=== PATIENT | male | born 1955 | race Two or more races ===

== ENCOUNTER 2022-08-21 14:20 | Inpatient (IN) | payer MEDICARE, OTHER ==
[~2022-08-21] VITALS: Ht 165.1 cm; Wt 82.6 kg
--- NOTE | 2022-08-21 14:29 | NUR ---
CALLED FOR TRIAGE, NO RESPONSE
[2022-08-21] MEDS ORDERED: HYDR25SU33 RC (15:12)
[2022-08-21] MEDS ORDERED: HYDR-3972 PO (15:12)
[2022-08-21] MEDS ORDERED: CALC-1159 PO (15:12)
[2022-08-21] MEDS ORDERED: ACET325T53 PO (15:12)
[2022-08-21] MEDS ORDERED: RIVA10TA PO (15:12)
[2022-08-21] MEDS ORDERED: LEVE500T20 PO (15:12)
[2022-08-21] MEDS ORDERED: HYDR-3980 PO (15:12)
[2022-08-21] MEDS ORDERED: OMEP20CA15 PO (15:12)
[2022-08-21] MEDS ORDERED: MAGN400O6 PO (15:12)
[2022-08-21] MEDS ORDERED: ATOR40TA PO (15:12)
[2022-08-21] MEDS ORDERED: LORA10TA68 PO (15:12)
[2022-08-21] MEDS ORDERED: IBUP-1955 PO (15:12)
[2022-08-21] MEDS ORDERED: BISA10SU11 RC (15:12)
--- NOTE | 2022-08-21 15:15 | NUR ---
URINE SAMPLE COLLECTED AND SENT TO LAB
--- NOTE | 2022-08-21 15:17 | NUR ---
CERTIFIED RETINAL ANGIOGRAPHER ROCHELLE SWAN [phone]
--- NOTE | 2022-08-21 15:40 | NUR ---
IV medication completed, no signs of infiltration, IV discontinued
[2022-08-21 15:59] LABS: BASOPHILS % (AUTO) 0.2 % (0.0-2.0); HEMATOCRIT 45 % (39-51); HEMOGLOBIN 14.5 g/dL (13.5-17.5); LYMPHOCYTES # (AUTO) 1.4 K/uL (0.8-4.8); LYMPHOCYTES % (AUTO) 18.7 % (20.0-44.0); MEAN CORPUSCULAR HGB CONC 33 g/dl (31.0-36.0); MEAN CORPUSCULAR VOLUME 93 fL (80-96); MONOCYTES # (AUTO) 0.7 K/uL (0.1-1.30); MONOCYTES % (AUTO) 9.5 % (2.0-12.0); NEUTROPHILS # (AUTO) 5.3 K/uL (1.8-8.9); NEUTROPHILS % (AUTO) 68.6 % (43.0-81.0); PLATELET COUNT (AUTO) 181 K/uL (150-450); RED BLOOD CELL COUNT(AUTO) 4.81 MIL/uL (4.5-6.0); WHITE BLOOD COUNT (AUTO) 7.7 K/uL (4.3-11.0)
[2022-08-21 16:18] LABS: BILIRUBIN,URINE NEGATIVE (NEGATIVE); COLOR,URINE YELLOW (YELLOW); LEUKOCYTE ESTERASE ,URINE 2+ (NEGATIVE); NITRITE, URINE NEGATIVE (NEGATIVE); PROTEIN,URINE NEGATIVE (NEGATIVE); UGLUCOSE NEGATIVE (NEGATIVE); UROBILINOGEN,URINE 0.2 EU/dL (0.2)
--- NOTE | 2022-08-21 16:22 | NUR ---
RAPID COVID SWAB DONE AND SENT TO LAB
[2022-08-21 16:43] LABS: BACTERIA,URINE 4+ /HPF (None Seen); RBC,URINE 0-2 /HPF (0-2); SQUAMOUS EPITHELIAL CELL,UR 0-2 /HPF (None Seen); WBC,URINE 21-50 /HPF (0-3)
[2022-08-21] MEDS ORDERED: HYDROCODONE/APAP 5/325MG TABLET ONE (17:29)
[2022-08-21] MEDS ORDERED: HYDROCODONE/APAP 5/325MG TABLET PO ONE (17:30)
[2022-08-21 17:37] LABS: CREATININE 1.4 mg/dL (0.6-1.3); POTASSIUM 4.4 mmol/L (3.5-5.1)
[2022-08-21 18:00] LABS: THYROID STIMULATING HORMONE 2.488 uIU/mL (0.358-3.74)
[2022-08-21] MEDS ORDERED: CIPROFLOXACIN HCL 500 MG TABLET PO ONE (18:30)
[2022-08-21] MEDS ORDERED: CIPROFLOXACIN HCL 500 MG TABLET ONE (18:39)
--- NOTE | 2022-08-21 18:58 | NUR ---
ROOM 212 A
--- NOTE | 2022-08-21 19:22 | NUR ---
REPORT GIVEN TO ARTEM SOTO OF [employer]
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
--- NOTE | 2022-08-21 19:58 | NUR ---
TRANSFERRED TO [facility] VIA STRETCHER
[2022-08-21 20:00] VITALS: BP 105/56
[2022-08-21] MEDS ORDERED: MAGNESIUM HYDROXIDE 30 ML UDC PO PRN ×2 (20:30→22:00)
[2022-08-21] MEDS ORDERED: MAG HYDROX/AL HYDROX/SIMETH 30 ML UDC PO PRN (20:30)
[2022-08-21] MEDS ORDERED: ACETAMINOPHEN 325 MG TABLET PO PRN ×2 (20:30→22:00)
[2022-08-21] MEDS ORDERED: BISACODYL SUPP (10 MG) 10 MG/SUPP.RECT SUPP.RECT RC PRN (22:00)
[2022-08-21] MEDS ORDERED: HYDROCORTISONE ACETATE 25 MG/SUPP.RECT SUPP.RECT RC PRN (22:00)
[2022-08-21] MEDS ORDERED: BLOOD SUGAR DIAGNOSTIC 1 EACH STRIP IN ONE (22:00)
[2022-08-21] MEDS ORDERED: CALCIUM CARBONATE 500 MG TAB.CHEW PO PRN (22:30)
[2022-08-21] MEDS ORDERED: Z GUARD REMEDY 4 OZ OINT TP PRN (22:30)
[2022-08-22] MEDS: HYDROCODONE/APAP 5/325MG TABLET PO PRN ×3 (05:00→22:53)
--- NOTE | 2022-08-22 05:00 | NUR ---
GPS RN NOTE, PATIENT HAS A COMPLAINT OF LOWER BACK PAIN AT 7 OUT OF 10 ON THE PAIN SCALE AND IS REQUESTING NORCO AT THIS TIME. PATIENT VITAL SIGNS ARE STABLE. GAVE NORCO 5-325 1 TAB PO Q6HR PRN ORDERED. WILL REASSESS PAIN AND I WILL CONTINUE TO MONITOR THIS PATIENT WITH THE HELP OF STAFF.
[2022-08-22 08:00] VITALS: BP 136/76
[2022-08-22] MEDS: CIPROFLOXACIN HCL 250 MG TABLET PO SCH ×2 (08:32→21:21)
[2022-08-22] MEDS: ATORVASTATIN 40 MG TABLET PO SCH (08:32)
[2022-08-22] MEDS: LORATADINE 10 MG TABLET PO SCH (08:32)
[2022-08-22] MEDS: LEVETIRACETAM (250 MG) 250 MG TABLET PO SCH ×2 (08:32→21:29)
[2022-08-22] MEDS: PANTOPRAZOLE 40 MG TABLET.DR PO SCH (08:32)
[2022-08-22] MEDS: RIVAROXABAN 10 MG TABLET PO SCH (08:33)
--- NOTE | 2022-08-22 10:44 | NUR ---
WOUND CARE CONSULT: PT PRESENTS WITH BACK AND CHEST PATCHY RED SKIN CONDITION WHICH HE STATES HAS BEEN CHRONIC SINCE CHILDHOOD. DEFER TO PMD. WILL SEE PRN.
[2022-08-22 16:00] VITALS: BP 134/57
[2022-08-22] MEDS: DULOXETINE HCL 30 MG CAPSULE.DR PO SCH (16:00)
--- NOTE | 2022-08-22 16:09 | NUR ---
Initial discharge plan: The pt. states he currently resides at [facility] [[address] [place] [address] ] and does not want to return there. Per pt. he would like to have his "own place". [facility] called [facility] [phone] who states that the pt. does not want to live there. [facility]OT will continue to collaborate with psychiatrist to form a safe and proper discharge plan.
--- NOTE | 2022-08-22 16:10 | NUR ---
Family Contact: Per pt. he has a brother, Regulo Bauer who resides in [place] tel: [phone] SW attempted to reach Regulo but line is disconnected. Per pt., Jake Ronn [phone] is his [facility] worker and should not be involved.
--- NOTE | 2022-08-22 16:12 | NUR ---
Facility Contact: [facility] called [facility] [phone] who provided collateral information and stated pt. has no family, is not conserves and garnica not have a DPOA.
[2022-08-22 20:00] VITALS: BP 122/65
[2022-08-22] MEDS: ARIPIPRAZOLE 5 MG TABLET PO SCH (21:38)
--- NOTE | 2022-08-22 22:53 | NUR ---
RN NOTE: PAIN PATIENT C/O RIGHT HIP PAIN 01/26 AND WANTED TO TAKE NORCO ONLY AT THIS TIME. PRN NORCO 5-325 MG PO ADMINISTERED ORDERED BY MD. WILL CONTINUE TO MONITOR FOR ANY CHANGES.
[2022-08-23 07:05] LABS: BASOPHILS % (AUTO) 0.1 % (0.0-2.0); EOSINOPHILS % (AUTO) 2.3 % (0.0-6.0); HEMATOCRIT 44 % (39-51); HEMOGLOBIN 14.8 g/dL (13.5-17.5); LYMPHOCYTES # (AUTO) 1.2 K/uL (0.8-4.8); LYMPHOCYTES % (AUTO) 17.9 % (20.0-44.0); MEAN CORPUSCULAR HGB CONC 33 g/dl (31.0-36.0); MEAN CORPUSCULAR VOLUME 92 fL (80-96); MONOCYTES # (AUTO) 0.5 K/uL (0.1-1.30); MONOCYTES % (AUTO) 8.4 % (2.0-12.0); NEUTROPHILS # (AUTO) 4.7 K/uL (1.8-8.9); NEUTROPHILS % (AUTO) 71.3 % (43.0-81.0); PLATELET COUNT (AUTO) 163 K/uL (150-450); RED BLOOD CELL COUNT(AUTO) 4.83 MIL/uL (4.5-6.0); WHITE BLOOD COUNT (AUTO) 6.5 K/uL (4.3-11.0)
[2022-08-23 07:18] LABS: CALCIUM, SERUM 8.7 mg/dL (8.5-10.1); CREATININE 1.2 mg/dL (0.6-1.3); POTASSIUM 3.8 mmol/L (3.5-5.1)
[2022-08-23 08:00] VITALS: BP 144/87
[2022-08-23] MEDS: PANTOPRAZOLE 40 MG TABLET.DR PO SCH (08:09)
[2022-08-23] MEDS: LORATADINE 10 MG TABLET PO SCH (08:10)
[2022-08-23] MEDS: HYDROCODONE/APAP 5/325MG TABLET PO PRN ×3 (08:10→21:33)
[2022-08-23] MEDS: ATORVASTATIN 40 MG TABLET PO SCH (08:10)
[2022-08-23] MEDS: CIPROFLOXACIN HCL 250 MG TABLET PO SCH ×2 (08:10→21:25)
[2022-08-23] MEDS: LEVETIRACETAM (250 MG) 250 MG TABLET PO SCH ×2 (08:10→21:26)
[2022-08-23] MEDS: DULOXETINE HCL 30 MG CAPSULE.DR PO SCH (08:10)
[2022-08-23] MEDS: RIVAROXABAN 10 MG TABLET PO SCH (08:13)
[2022-08-23 16:00] VITALS: BP 131/67
--- NOTE | 2022-08-23 19:30 | NUR ---
PS RN NOTE, RECEIVED PATIENT AWAKE AND IN BED, HAS A COMPLAINT OF LOWER BACK PAIN AT 6 OUT OF 10 ON THE PAIN SCALE. PATIENT IS TAKING PAIN MEDICATION FOR THIS PAIN. PATIENT IS DISPLAYING NO S/S OF APPARENT DISTRESS AT THIS TIME. PATIENT BREATHING IS UNLABORED WITH EQUAL RISE AND FALL OF THE CHEST. PATIENT IS ALERT AND ORIENTED X 3 ON ROOM AIR WITH A SPO2 95%. PATIENT IS COMPLIANT WITH MEDICATIONS, CALM, GUARDED, ANXIOUS, AND COOPERATIVE. PATIENT DENIES SUICIDAL AND HOMICIDAL IDEATIONS AT THIS TIME. PATIENT ASSISTED WITH TURNING AND REPOSITIONING Q2HR AND PRN FOR COMFORT AND CIRCULATION. PATIENT HAS NO NEEDS AT THIS TIME. PATIENT EDUCATED ON THE USE OF THE CALL [place]ILLAL[place]. PATIENT BED SIDE RAILS UP X 2 FOR SAFETY. PATIENT BED IS LOCKED AND LOW. WILL CONTINUE TO MONITOR THIS PATIENT Q15 MINUTES WITH THE HELP OF STAFF TO MAINTAIN SAFETY.
[2022-08-23 20:59] VITALS: BP 116/81
[2022-08-23] MEDS: ARIPIPRAZOLE 5 MG TABLET PO SCH (21:25)
--- NOTE | 2022-08-23 21:34 | NUR ---
GPS RN NOTE, PATIENT HAS A COMPLAINT OF LOWER BACK PAIN AT 7 OUT OF 10 ON THE PAIN SCALE AND IS REQUESTING NORCO AT THIS TIME. PATIENT VITAL SIGNS ARE STABLE. GAVE NORCO 5-325 Q6HR PRN ORDERED. WILL REASSESS PAIN AND I WILL CONTINUE TO MONITOR THIS PATIENT WITH THE HELP OF STAFF.
[2022-08-24 08:00] VITALS: BP 147/53
[2022-08-24] MEDS: PANTOPRAZOLE 40 MG TABLET.DR PO SCH (08:18)
[2022-08-24] MEDS: LEVETIRACETAM (250 MG) 250 MG TABLET PO SCH ×2 (08:18→20:51)
[2022-08-24] MEDS: CIPROFLOXACIN HCL 250 MG TABLET PO SCH ×2 (08:18→20:50)
[2022-08-24] MEDS: LORATADINE 10 MG TABLET PO SCH ×2 (08:18→08:25)
[2022-08-24] MEDS: DULOXETINE HCL 30 MG CAPSULE.DR PO SCH ×2 (08:18→08:24)
[2022-08-24] MEDS: ATORVASTATIN 40 MG TABLET PO SCH (08:24)
[2022-08-24] MEDS: RIVAROXABAN 10 MG TABLET PO SCH (08:29)
[2022-08-24] MEDS: HYDROCODONE/APAP 5/325MG TABLET PO PRN ×2 (09:58→16:59)
[2022-08-24 16:00] VITALS: BP 135/80
[2022-08-24 20:22] VITALS: BP 115/75
[2022-08-24] MEDS: ARIPIPRAZOLE 5 MG TABLET PO SCH (20:50)
[2022-08-25] MEDS: TEMAZEPAM 7.5 MG CAPSULE PO PRN ×2 (00:51→23:43)
[2022-08-25] MEDS: HYDROCODONE/APAP 5/325MG TABLET PO PRN ×4 (00:51→23:43)
--- NOTE | 2022-08-25 04:27 | NUR ---
RN CLOSING NOTES: ALERT AND ORIENTATED X3 AMBULATES WITH AND WITHOUT THE WALKER HIS GAIT IS UNSTEADY AND SLOW SMILING AND VERBALIZING HIS NEEDS PLEASANT REQUESTED RESTORIL FOR INSOMNIA AND EFFECTIVE /REQUESTED NORCO FOR BACK PAIN AND EFFECTIVE PINK RASH ON HIS BACK STATES THERE IS AN ITCH AND RECEIVING CLARITINE FOR IT SAT IN THE TV ROOM ALONE FOR 1 HOUR THIS EVENING
[2022-08-25 08:00] VITALS: BP 145/70
[2022-08-25] MEDS: PANTOPRAZOLE 40 MG TABLET.DR PO SCH (08:03)
[2022-08-25] MEDS: DULOXETINE HCL 30 MG CAPSULE.DR PO SCH (08:05)
[2022-08-25] MEDS: CIPROFLOXACIN HCL 250 MG TABLET PO SCH (08:05)
[2022-08-25] MEDS: ATORVASTATIN 40 MG TABLET PO SCH (08:06)
[2022-08-25] MEDS: LEVETIRACETAM (250 MG) 250 MG TABLET PO SCH ×2 (08:06→21:18)
[2022-08-25] MEDS: RIVAROXABAN 10 MG TABLET PO SCH (08:14)
[2022-08-25] MEDS: LORATADINE 10 MG TABLET PO SCH (08:15)
--- NOTE | 2022-08-25 15:08 | NUR ---
HIWOT NOTE: SW MET WITH PT AND DISCUSSED HIS DISCHARGE PLANNING. HE STATED THAT HE DOES NOT WANT TO RETURN BACK TO [facility]. PT STATED HE WANTS ANOTHER FACILITY.
[2022-08-25 16:00] VITALS: BP 145/82
[2022-08-25 21:09] VITALS: BP 136/75
[2022-08-25] MEDS: ARIPIPRAZOLE 5 MG TABLET PO SCH (21:17)
[2022-08-25] MEDS: SULFAMETH/TRIMETH 800/160 MG 1 UDTAB TABLET PO SCH (21:17)
--- NOTE | 2022-08-25 23:47 | NUR ---
RN NOTE; PT COMPLAINED OF LOWER BACK PAIN 7/10 AND CANNOT SLEEP.PRN NORCO 5-325MG AND RESTORIL 7.5MG,WAS GIVEN.
[2022-08-26] MEDS: PANTOPRAZOLE 40 MG TABLET.DR PO SCH (07:40)
[2022-08-26 08:00] VITALS: BP 146/89
--- NOTE | 2022-08-26 08:13 | NUR ---
SNF Referral: [facility]WOT sent clinicals to Eric dobbins from [facility] ([phone]) for placement. SW sent H & P, progress notes, and medication list.
[2022-08-26] MEDS: ATORVASTATIN 40 MG TABLET PO SCH (09:07)
[2022-08-26] MEDS: DULOXETINE HCL 30 MG CAPSULE.DR PO SCH (09:07)
[2022-08-26] MEDS: HYDROCODONE/APAP 5/325MG TABLET PO PRN ×3 (09:07→21:47)
[2022-08-26] MEDS: LEVETIRACETAM (250 MG) 250 MG TABLET PO SCH ×2 (09:07→21:47)
[2022-08-26] MEDS: LORATADINE 10 MG TABLET PO SCH (09:07)
[2022-08-26] MEDS: RIVAROXABAN 10 MG TABLET PO SCH (09:09)
[2022-08-26] MEDS: SULFAMETH/TRIMETH 800/160 MG 1 UDTAB TABLET PO SCH ×2 (09:09→21:47)
[2022-08-26 16:00] VITALS: BP 130/88
[2022-08-26 20:38] VITALS: BP 109/70
[2022-08-26] MEDS: TEMAZEPAM 7.5 MG CAPSULE PO PRN (21:47)
[2022-08-26] MEDS: ARIPIPRAZOLE 5 MG TABLET PO SCH (21:47)
[2022-08-27] MEDS: clonazePAM 0.5 MG TABLET PO PRN ×2 (02:50→15:08)
[2022-08-27] MEDS: HYDROCODONE/APAP 5/325MG TABLET PO PRN ×3 (04:02→22:15)
[2022-08-27] MEDS: PANTOPRAZOLE 40 MG TABLET.DR PO SCH (06:31)
[2022-08-27 08:00] VITALS: BP 138/82
[2022-08-27] MEDS: RIVAROXABAN 10 MG TABLET PO SCH (08:39)
[2022-08-27] MEDS: SULFAMETH/TRIMETH 800/160 MG 1 UDTAB TABLET PO SCH ×2 (08:40→21:19)
[2022-08-27] MEDS: LEVETIRACETAM (250 MG) 250 MG TABLET PO SCH ×2 (08:40→21:19)
[2022-08-27] MEDS: DULOXETINE HCL 30 MG CAPSULE.DR PO SCH (08:40)
[2022-08-27] MEDS: ATORVASTATIN 40 MG TABLET PO SCH (08:41)
[2022-08-27] MEDS: LORATADINE 10 MG TABLET PO SCH (08:41)
--- NOTE | 2022-08-27 12:48 | NUR ---
Court Notification: Pt does not have any supportive contact to notify of 5250 hearing.
--- NOTE | 2022-08-27 15:08 | NUR ---
NURSE NOTE: PT C/O PAIN AT THIS TIME. REQUESTED NORCO AND CLONOPIN AT THIS TIME. INSTRUCTED PT THAT I COULD NOT GIVE AT THE SAME TIME. NORCO ADMINISTERED ORDERED AT THIS TIME. PT MICHAEL WELL. WILL CONT TO MONITOR.
--- NOTE | 2022-08-27 15:38 | NUR ---
NURSE NOTE: CLONOPIN ADMINISTERED ORDERED PER PTS REQUEST. PT MICHAEL WELL, WILL CONT TO MONITOR.
[2022-08-27 16:00] VITALS: BP 118/80
--- NOTE | 2022-08-27 16:08 | NUR ---
NURSE NOTE: PT STATED THAT HE IS FEELING MUCH BETTER. MINIMAL PAIN IS TOLERABLE, BUT HE'S ABLE MOVE HIS FINGERS AND BACK FEELS BETTER. NORCO EFFECTIVE AT THIS TIME. WILL CONT TO MONITOR. Addendum: 08/27/22 at 1806 by SHA RENTERIA RN ALSO PT STATED THAT HE IS NOT FEELING ANXIOUS ANYMORE. KLONOPIN EFFECTIVE AT THIS TIME.
--- NOTE | 2022-08-27 16:49 | NUR ---
Court Hearing: Patient's court hearing for 4610 was today and it was upheld for danger to others and GD.
--- NOTE | 2022-08-27 18:04 | NUR ---
NURSE NOTE: PT REFUSED ACCU CHECK THROUGHOUT SHIFT. ENCOURAGED MULTIPLE TIMES, BUT PT REFUSED.
[2022-08-27 21:25] VITALS: BP 105/53
[2022-08-27] MEDS: ARIPIPRAZOLE 5 MG TABLET PO SCH (21:36)
--- NOTE | 2022-08-27 22:17 | NUR ---
RN NOTE: PAIN PATIENT C/O RIGHT/LEFT HIP PAIN 01/26 AND WANTED TO TAKE NORCO AT THIS TIME. PRN NORCO 5-325 MG PO ADMINISTERED. WILL CONTINUE TO MONITOR FOR ANY CHANGES THROUGHOUT THE SHIFT.
[2022-08-27] MEDS: TEMAZEPAM 7.5 MG CAPSULE PO PRN (23:07)
--- NOTE | 2022-08-27 23:08 | NUR ---
RN NOTE: INSOMNIA PATIENT KEPT COMING OUT OF HIS ROOM AND VERBALIZED SLEEPLESSNESS AND INSISTED TO TAKE SLEEPING MEDICINE RIGHT NOW. PRN RESTORIL 7.5 MG PO ADMINISTERED. WILL CONTINUE TO MONITOR FOR ANY CHANGE OF CONDITION.
[2022-08-28] MEDS: clonazePAM 0.5 MG TABLET PO PRN ×4 (04:08→23:49)
--- NOTE | 2022-08-28 04:10 | NUR ---
RN NOTE: ANXIETY PATIENT C/O FEELING ANXIOUS AND RESTLESS AND WANTED TO TAKE MEDICINE. PRN KLONOPIN 0.5 MG PO ADMINISTERED PER MD ORDERS.
[2022-08-28] MEDS: HYDROCODONE/APAP 5/325MG TABLET PO PRN ×3 (05:19→19:20)
--- NOTE | 2022-08-28 05:21 | NUR ---
RN NOTE: PAIN PATIENT C/O RIGHT HIP PAIN 12/27 AND WANTED TO TAKE NORCO AT THIS TIME. PRN NORCO 5-325 MG PO ADMINISTERED. WILL CONTINUE TO MONITOR FOR ANY CHANGES THROUGHOUT THE SHIFT.
[2022-08-28 08:00] VITALS: BP 116/58
[2022-08-28] MEDS: PANTOPRAZOLE 40 MG TABLET.DR PO SCH (08:07)
[2022-08-28] MEDS: ATORVASTATIN 40 MG TABLET PO SCH (08:34)
[2022-08-28] MEDS: SULFAMETH/TRIMETH 800/160 MG 1 UDTAB TABLET PO SCH ×2 (08:34→20:50)
[2022-08-28] MEDS: LEVETIRACETAM (250 MG) 250 MG TABLET PO SCH ×2 (08:34→20:50)
[2022-08-28] MEDS: LORATADINE 10 MG TABLET PO SCH (08:34)
[2022-08-28] MEDS: RIVAROXABAN 10 MG TABLET PO SCH (08:35)
[2022-08-28] MEDS: DULOXETINE HCL 30 MG CAPSULE.DR PO SCH (08:35)
--- NOTE | 2022-08-28 11:47 | NUR ---
RN-NOTES PATIENT STATED" I NEED MY KLONOPIN FOR MY ANXIETY" KLONOPIN 0.5MG P.O GIVEN PRN ORDER. WILL CONT. MONITORING FOR SAFETY AND BEHAVIOR.
--- NOTE | 2022-08-28 12:50 | NUR ---
RN-NOTES PATIENT LYING IN BED INTERMITTENTLY SLEEPING EASILY AROUSED,NO ACUTE DISTRESS NOTED.
[2022-08-28 16:00] VITALS: BP 127/59
[2022-08-28 16:15] LABS: CALCIUM, SERUM 8.8 mg/dL (8.5-10.1); CREATININE 1.6 mg/dL (0.6-1.3); POTASSIUM 4.1 mmol/L (3.5-5.1)
--- NOTE | 2022-08-28 16:43 | NUR ---
RN-NOTES PATIENT REQUESTING KLONOPIN FOR MY ANXIETY, KLONOPIN 0.5MG P.O GIVEN PRN ORDER. WILL CONT. MONITORING FOR SAFETY AND BEHAVIOR.
--- NOTE | 2022-08-28 17:50 | NUR ---
RN-NOTES PATIENT LYING IN BED INTERMITTENTLY SLEEPING,EASILY AROUSED.NO ACUTE DISTRESS NOTED.
--- NOTE | 2022-08-28 18:28 | NUR ---
RN-NOTES PATIENT VISIBLE IN THE UNIT,A/OX3 GUARDED,NO ACUTE DISTRESS NOTED. COOPERATIVE WITH STAFF,COMPLIANT WITH MEDICATIONS.NEEDS MINIMAL ASSIST WITH ADL'S. AMBULATORY WITH WALKER.ABLE TO VERBALIZED FEELINGS AND NEEDS TO THE STAFF.ALL NEEDS ATTENDED AND ANTICIPATED. WILL CONT. MONITORING FOR SAFETY AND BEHAVIOR.WILL ENDORSE TO INCOMING NURSE FOR THE CONTINUITY OF CARE.
--- NOTE | 2022-08-28 19:21 | NUR ---
RN NOTE: PAIN PATIENT C/O RIGHT/LEFT HIP PAIN 01/26 AND WANTED TO TAKE NORCO AT THIS TIME. PRN NORCO 5-325 MG PO ADMINISTERED. WILL CONTINUE TO MONITOR .
--- NOTE | 2022-08-28 19:55 | NUR ---
RN NOTES: PATIENT RESTING HIS ROOM . IN NO APPARENT DISTRESS NOTED. PATIENT REMAINS , DISORGANIZED, GUARDED, PARANOID ,DISHELVED , EASILY AGITATED, NEEDY DEMANDING , FOCUS ON PRN MEDS ,NEEDS FREQUENTLY REDIRECTIONS SAFETY PRECAUTIONS MAINTAINED. WILL CONTINUE TO MONITOR Q15MIN ROUNDS FOR SAFETY AND BEHAVIOR.
[2022-08-28 20:00] VITALS: BP 136/78
[2022-08-28] MEDS: ARIPIPRAZOLE 5 MG TABLET PO SCH (21:26)
--- NOTE | 2022-08-28 23:51 | NUR ---
RN NOTES: ANXIETY PT. C/O FEELING ANXIOUS ,RESTLESS , PRN KLONOPIN 0.5 MG PO GIVEN PER PT. REQUEST, WILL CONTINUE TO MONITOR.
[2022-08-29] MEDS: HYDROCODONE/APAP 5/325MG TABLET PO PRN ×3 (04:32→18:17)
--- NOTE | 2022-08-29 04:33 | NUR ---
RN NOTE: PAIN PATIENT C/O BACK PAIN 01/26 AND WANTED TO TAKE NORCO AT THIS TIME. PRN NORCO 5-325 MG PO ADMINISTERED. WILL CONTINUE TO MONITOR .
[2022-08-29 08:00] VITALS: BP 152/64
[2022-08-29] MEDS: PANTOPRAZOLE 40 MG TABLET.DR PO SCH (08:19)
[2022-08-29] MEDS: SULFAMETH/TRIMETH 800/160 MG 1 UDTAB TABLET PO SCH ×2 (08:55→20:04)
[2022-08-29] MEDS: DULOXETINE HCL 30 MG CAPSULE.DR PO SCH (08:55)
[2022-08-29] MEDS: LORATADINE 10 MG TABLET PO SCH (08:56)
[2022-08-29] MEDS: RIVAROXABAN 10 MG TABLET PO SCH (08:56)
[2022-08-29] MEDS: LEVETIRACETAM (250 MG) 250 MG TABLET PO SCH ×2 (08:56→20:04)
[2022-08-29] MEDS: ATORVASTATIN 40 MG TABLET PO SCH (09:31)
[2022-08-29] MEDS: clonazePAM 0.5 MG TABLET PO PRN ×2 (12:45→16:47)
--- NOTE | 2022-08-29 12:45 | NUR ---
RN-NOTES PATIENT REQUESTING KLONOPIN FOR MY ANXIETY, KLONOPIN 0.5MG P.O GIVEN PRN ORDER. WILL CONT. MONITORING FOR SAFETY AND BEHAVIOR.
--- NOTE | 2022-08-29 13:45 | NUR ---
RN-NOTES PATIENT LYING IN BED INTERMITTENTLY SLEEPING,EASILY AROUSED.NO ACUTE DISTRESS NOTED.
[2022-08-29 16:00] VITALS: BP 100/59
--- NOTE | 2022-08-29 18:25 | NUR ---
RN-NOTES PATIENT LYING IN BED AWAKE,A/OX3 GUARDED,NO ACUTE DISTRESS NOTED. COOPERATIVE WITH STAFF,COMPLIANT WITH MEDICATIONS.NEEDS MINIMAL ASSIST WITH ADL'S. AMBULATORY WITH WALKER.ABLE TO VERBALIZED FEELINGS AND NEEDS TO THE STAFF.ALL NEEDS ATTENDED AND ANTICIPATED. WILL CONT. MONITORING FOR SAFETY AND BEHAVIOR.WILL ENDORSE TO INCOMING NURSE FOR THE CONTINUITY OF CARE.
[2022-08-29 20:50] VITALS: BP 131/95
[2022-08-29] MEDS: ARIPIPRAZOLE 5 MG TABLET PO SCH (21:30)
[2022-08-30] MEDS: HYDROCODONE/APAP 5/325MG TABLET PO PRN ×3 (01:27→15:02)
[2022-08-30] MEDS: clonazePAM 0.5 MG TABLET PO PRN ×2 (06:33→12:42)
[2022-08-30 08:00] VITALS: BP 117/73
[2022-08-30] MEDS: DULOXETINE HCL 30 MG CAPSULE.DR PO SCH (08:43)
[2022-08-30] MEDS: SULFAMETH/TRIMETH 800/160 MG 1 UDTAB TABLET PO SCH ×2 (08:43→20:52)
[2022-08-30] MEDS: LEVETIRACETAM (250 MG) 250 MG TABLET PO SCH ×2 (08:43→20:52)
[2022-08-30] MEDS: PANTOPRAZOLE 40 MG TABLET.DR PO SCH (08:44)
[2022-08-30] MEDS: ATORVASTATIN 40 MG TABLET PO SCH (08:44)
[2022-08-30] MEDS: RIVAROXABAN 10 MG TABLET PO SCH (08:44)
[2022-08-30] MEDS: LORATADINE 10 MG TABLET PO SCH (08:44)
[2022-08-30 16:00] VITALS: BP 111/61
--- NOTE | 2022-08-30 18:30 | NUR ---
CAN LABELER NOTE PATIENT ASKED FOR TEMAZEPAM, EXPLAINED THIS MEDICATION IS GIVEN LATER IN THE EVENING. PATIENT KEPT ASKING FOR MEDICATION SO HE CAN SLEEP. EXPLAINED ONCE AGAIN, PATIENT STATED HE NEEDS HIS MEDICATION NOW. MEDICATION ADMINISTERED. WILL ENDORSE TO SOLAR ENERGY SPECIALIST NURSE.
[2022-08-30] MEDS: TEMAZEPAM 7.5 MG CAPSULE PO PRN (18:31)
[2022-08-30 20:19] VITALS: BP 109/48
[2022-08-30] MEDS: ARIPIPRAZOLE 5 MG TABLET PO SCH (21:07)
[2022-08-31] MEDS: HYDROCODONE/APAP 5/325MG TABLET PO PRN ×3 (01:55→17:02)
--- NOTE | 2022-08-31 01:55 | NUR ---
RN NOTE: PAIN PATIENT C/O BACK PAIN 02/26 AND WANTED TO TAKE NORCO AT THIS TIME. PRN NORCO 5-325 MG PO ADMINISTERED. WILL CONTINUE TO MONITOR .
[2022-08-31 08:00] VITALS: BP 127/70
[2022-08-31] MEDS: DULOXETINE HCL 30 MG CAPSULE.DR PO SCH (09:13)
[2022-08-31] MEDS: SULFAMETH/TRIMETH 800/160 MG 1 UDTAB TABLET PO SCH ×2 (09:13→21:26)
[2022-08-31] MEDS: LEVETIRACETAM (250 MG) 250 MG TABLET PO SCH ×2 (09:13→21:26)
[2022-08-31] MEDS: ATORVASTATIN 40 MG TABLET PO SCH (09:13)
[2022-08-31] MEDS: LORATADINE 10 MG TABLET PO SCH (09:13)
[2022-08-31] MEDS: PANTOPRAZOLE 40 MG TABLET.DR PO SCH (09:13)
[2022-08-31] MEDS: RIVAROXABAN 10 MG TABLET PO SCH (09:14)
[2022-08-31 16:00] VITALS: BP 109/58
--- NOTE | 2022-08-31 19:50 | NUR ---
RN NOTE RECEIVED PATIENT RESTING IN BED, AWAKE. NO DISTRESS NOTED. PATIENT REMAINS , DISORGANIZED, GUARDED, PARANOID , DISHEVELED, EASILY AGITATED. NEEDS FREQUENTLY REDIRECTIONS SAFETY PRECAUTIONS MAINTAINED. WILL CONTINUE TO MONITOR PT, ROUND FOR SAFETY AND BEHAVIOR.
[2022-08-31 20:10] VITALS: BP 95/51
[2022-08-31] MEDS: ARIPIPRAZOLE 5 MG TABLET PO SCH (21:26)
[2022-08-31] MEDS: TEMAZEPAM 7.5 MG CAPSULE PO PRN (21:27)
--- NOTE | 2022-08-31 21:27 | NUR ---
RN NOTE PT REQUESTS RESTORIL FOR INSOMNIA. RESTORIL ADMINISTERED TO PT.
[2022-09-01] MEDS: HYDROCODONE/APAP 5/325MG TABLET PO PRN ×2 (03:24→12:22)
--- NOTE | 2022-09-01 06:55 | NUR ---
RN NOTE PT LEFT RESTING IN BED. NO ACUTE DISTRESS NOTED. NO BEHAVIORAL ISSUE NOTED. SAFETY MEASURES IMPLEMENTED. WILL ENDORSE TO AM SHIFT NURSE FOR DAYDAY.
[2022-09-01 08:00] VITALS: BP 144/88
--- NOTE | 2022-09-01 08:02 | NUR ---
SW Discharge Note: Patient will be discharged to nursing home facility to [facility] [address] [place] [address]; . Please arrange Ambulance transportation for patient to be picked up at 2PM. Economics Department Chair spoke with KATHY, Survey Technician at [facility]; ([phone]), who stated patient will be accepted at facility today. Patient is alert and oriented x2. Patient denies any suicidal or homicidal ideations. Patient is aware and agreeable with discharge plans. Patient does not have any support at this time. Patient will follow-up at the facility with Dr. Barrientos and Exchange Mechanic Dr. Tavarez located at [facility] [address], [place] [address]; . Patient presents with euthymic mood and congruent affect.
[2022-09-01] MEDS: DULOXETINE HCL 30 MG CAPSULE.DR PO SCH (08:21)
[2022-09-01] MEDS: ATORVASTATIN 40 MG TABLET PO SCH (08:21)
[2022-09-01] MEDS: LORATADINE 10 MG TABLET PO SCH (08:21)
[2022-09-01] MEDS: LEVETIRACETAM (250 MG) 250 MG TABLET PO SCH (08:21)
[2022-09-01] MEDS: SULFAMETH/TRIMETH 800/160 MG 1 UDTAB TABLET PO SCH (08:22)
[2022-09-01] MEDS: RIVAROXABAN 10 MG TABLET PO SCH (08:22)
[2022-09-01] MEDS: PANTOPRAZOLE 40 MG TABLET.DR PO SCH (08:22)
--- NOTE | 2022-09-01 09:14 | NUR ---
RN-CO: DR Barrientos gave an order to discontinue hold and discharge patient to [facility], noted and carried out.
--- NOTE | 2022-09-01 14:22 | NUR ---
NURSE NOTE: 61 YEAR OLD MALE DISCHARGED TO [facility] IN STABLE CONDITION. COMPLIANT WITH MEDICATIONS, COOPERATIVE WITH TREATMENT PLANS. PT DENIES SI/HI AND INSTRUCTED TO GO TO THE CLOSEST ER IF DEVELOPING SI/HI. DR GUILLERMO DISCONTINUED HOLD AND BOTH DR GUILLERMO AND DR LUNA DISCHARGED THE PT. BEHAVIOR IMPROVED, PSYCHIATRIC TX PLANS MET, MEDICAL TX PLANS DEFERRED FOR CONTINUAL MONITORING. EDUCATED PT ABOUT AFTERCARE PLAN AND COPY PROVIDED. RETURNED PERSONAL BELONGINGS TO PT. MEDICATIONS RECONCILED WITH DR GUILLERMO AND DR LUNA. REPORT GIVEN TO NASRIN SOTO AT [facility] FOR CONTINUITY OF CARE. PT SIGNED DISCHARGE PAPERWORK. PT REFUSED PICTURES TO BE TAKEN. PT LEFT THE UNIT AT 1422 VIA AMBULANCE.
== END 2022-09-01 14:22 | DRG 885 ==
LOC: ER 15:33 → GPS 19:09
PROVIDERS: ADMIT Psychiatry & Neurology Psychiatry
DX: F33.3 Major depressive disorder, recurrent, severe with psychotic symptoms (principal); N17.0 Acute kidney failure with tubular necrosis; I48.20 Chronic atrial fibrillation, unspecified; N39.0 Urinary tract infection, site not specified; F03.92 Unspecified dementia, unspecified severity, with psychotic disturbance; F03.93 Unspecified dementia, unspecified severity, with mood disturbance; F03.94 Unspecified dementia, unspecified severity, with anxiety; D68.59 Other primary thrombophilia; E78.5 Hyperlipidemia, unspecified; F41.9 Anxiety disorder, unspecified; Z79.01 Long term (current) use of anticoagulants; Z79.899 Other long term (current) drug therapy; Z73.6 Limitation of activities due to disability; E66.9 Obesity, unspecified; I10 Essential (primary) hypertension; Z86.73 Personal history of transient ischemic attack (TIA), and cerebral infarction without residual deficits; Z96.652 Presence of left artificial knee joint; G40.909 Epilepsy, unspecified, not intractable, without status epilepticus; B96.89 Other specified bacterial agents as the cause of diseases classified elsewhere; F29 Unspecified psychosis not due to a substance or known physiological condition; Z68.30 Body mass index [BMI] 30.0-30.9, adult; Z20.822 Contact with and (suspected) exposure to COVID-19
CPT/HCPCS: 36415; 71045-TC; 80048-TC; 80061-TC; 81001; 82962-TC; 84443-TC; 85025-TC; 87081-TC; 87086-TC; 97112-TC; 97116-TC; 97530-TC; C9803